=== PATIENT | female | born 1955 | race Caucasian/White ===

== ENCOUNTER → 2018-12-10 08:00 | Outpatient (CLI) | payer MEDICARE | END | disposition home or self-care (01) | LOC: D.MAMMO 08:00 | DX: Z12.31 Encounter for screening mammogram for malignant neoplasm of breast (principal) ==

== ENCOUNTER → 2020-05-17 14:14 | Outpatient (CLI) | payer MEDICARE ==
[2020-05-17 17:44] LABS: BASOPHILS 0.3 % (0-2); EOSINOPHILS 1.4 % (0-7); HEMATOCRIT 42.2 % (36.0-48.0); HEMOGLOBIN 12.9 g/dL (12-16); IMMATURE GRANULOCYTES 0.3 % (0-5); LYMPHOCYTES 22.2 % (15-50); MCH 25.6 pg (26.0-34.0); MCHC 30.6 g/dL (31.0-37.0); MCV 83.7 fL (80.0-100.0); MEAN PLATELET VOLUME 10.7 fL (7.4-10.4); MONOCYTES 7.6 % (2-11); NEUTROPHILS 68.2 % (40-80); PLATELET COUNT 354 10x3/uL (130-400); RBC 5.04 10x6/uL (4.00-5.40); WBC 7.9 10x3/uL (4.8-10.8)
[2020-05-17 17:54] LABS: BILIRUBIN NEGATIVE (NEGATIVE); GLUCOSE NEGATIVE (NEGATIVE); KETONE NEGATIVE (NEGATIVE); NITRITE NEGATIVE (NEGATIVE); SPECIFIC GRAVITY 1.015 (1.005-1.020); UROBILINOGEN NORMAL (NORMAL); WHITE CELLS - URINE >50 /hpf (NEGATIVE)
[2020-05-17 17:55] LABS: BACTERIA MODERATE /hpf (NEGATIVE); CALCIUM OXALATE CRYSTALS 0-5 /hpf (NONE SEEN)
[2020-05-17 18:01] LABS: ALBUMIN 3.3 g/dL (3.4-5.0); ALKALINE PHOSPHATASE 144 U/L (30-120); ALT (SGPT) 26 U/L (10-68); BILIRUBIN - TOTAL 0.36 mg/dL (0.2-1.3); CALC OSMOLALITY 272 mosm/kg (275-300); CALCIUM 9.8 mg/dL (8.5-10.1); CARBON DIOXIDE 31.1 mmol/L (21.0-32.0); CHLORIDE - SERUM 101 mmol/L (98-107); CREATININE - SERUM 0.8 mg/dL (0.6-1.3); GLUCOSE 88 mg/dL (74-106); POTASSIUM - SERUM 3.4 mmol/L (3.5-5.1); PROTEIN - SERUM 7.2 g/dL (6.4-8.2); SODIUM 137 mmol/L (136-145); UREA NITROGEN 13 mg/dL (7-18); eGFR NON AFRICAN AMERICAN 76 mL/min (90-120)
== END | disposition home or self-care (01) ==
LOC: D.LABREF 14:14
PROVIDERS: ATTEND Nurse Practitioner Gerontology
DX: N39.0 Urinary tract infection, site not specified (principal); R53.83 Other fatigue; R63.0 Anorexia

== ENCOUNTER → 2020-07-09 20:23 | Outpatient (CLI) | payer MEDICARE ==
[2020-07-09 21:24] LABS: BASOPHILS 0.1 % (0-2); EOSINOPHILS 3.6 % (0-7); HEMOGLOBIN 9.9 g/dL (12-16); IMMATURE GRANULOCYTES 0.2 % (0-5); LYMPHOCYTES 25.4 % (15-50); MCH 25.4 pg (26.0-34.0); MCV 84.8 fL (80.0-100.0); MEAN PLATELET VOLUME 9.8 fL (7.4-10.4); MONOCYTES 13.6 % (2-11); NEUTROPHILS 57.1 % (40-80); RBC 3.89 10x6/uL (4.00-5.40); RDW 20.1 % (11.5-14.5)
[2020-07-09 21:47] LABS: ALBUMIN 2.6 g/dL (3.4-5.0); ALT (SGPT) 15 U/L (10-68); C-REACTIVE PROTEIN 1.9 mg/dL (0.0-0.9); CALC OSMOLALITY 277 mosm/kg (275-300); CALCIUM 9.2 mg/dL (8.5-10.1); CARBON DIOXIDE 25.7 mmol/L (21.0-32.0); CHLORIDE - SERUM 105 mmol/L (98-107); CREATINE KINASE 25 UL (21-215); CREATININE - SERUM 0.7 mg/dL (0.6-1.3); POTASSIUM - SERUM 3.9 mmol/L (3.5-5.1); SODIUM 141 mmol/L (136-145); UREA NITROGEN 13 mg/dL (7-18); VANCOMYCIN - TROUGH 11.4 ug/mL (10.0-20.0); eGFR NON AFRICAN AMERICAN 89 mL/min (90-120)
[2020-07-09 21:49] LABS: GLUCOSE 41 mg/dL (74-106)
[2020-07-09 22:12] LABS: PLATELET COUNT 470 10x3/uL (130-400)
[2020-07-09 22:48] LABS: ERYTHROCYTE SEDIMENTATION RATE 17 mm/hr (0-30)
== END | disposition home or self-care (01) ==
LOC: D.LABREF 20:23
PROVIDERS: ATTEND Nurse Practitioner Gerontology
DX: A41.9 Sepsis, unspecified organism (principal)

== ENCOUNTER → 2020-07-12 17:59 | Outpatient (CLI) | payer MEDICARE | END | disposition home or self-care (01) | LOC: D.LABREF 17:59 | DX: A49.02 Methicillin resistant Staphylococcus aureus infection, unspecified site (principal); A41.9 Sepsis, unspecified organism; N39.0 Urinary tract infection, site not specified; Z79.2 Long term (current) use of antibiotics ==

== ENCOUNTER → 2020-07-16 15:17 | Outpatient (CLI) | payer MEDICARE ==
[2020-07-16 17:08] LABS: BASOPHILS 0.3 % (0-2); EOSINOPHILS 2.8 % (0-7); HEMATOCRIT 34.3 % (36.0-48.0); HEMOGLOBIN 10.7 g/dL (12-16); IMMATURE GRANULOCYTES 0.3 % (0-5); LYMPHOCYTES 19.1 % (15-50); MCH 25.5 pg (26.0-34.0); MCHC 31.2 g/dL (31.0-37.0); MCV 81.7 fL (80.0-100.0); MEAN PLATELET VOLUME 10.8 fL (7.4-10.4); MONOCYTES 10.1 % (2-11); NEUTROPHILS 67.4 % (40-80); RDW 17.8 % (11.5-14.5); WBC 9.8 10x3/uL (4.8-10.8)
[2020-07-16 17:42] LABS: ALBUMIN 2.9 g/dL (3.4-5.0); BILIRUBIN - DIRECT 0.05 mg/dL (0.00-0.30); BILIRUBIN - INDIRECT 0.09 mg/dL (0.00-1.00); BILIRUBIN - TOTAL 0.14 mg/dL (0.2-1.3); CREATININE - SERUM 0.7 mg/dL (0.6-1.3); PROTEIN - SERUM 7.3 g/dL (6.4-8.2); VANCOMYCIN - TROUGH 11.5 ug/mL (10.0-20.0)
[2020-07-16 17:44] LABS: PLATELET COUNT 167 10x3/uL (130-400)
== END | disposition home or self-care (01) ==
LOC: D.LABREF 15:17
DX: A41.9 Sepsis, unspecified organism (principal); Z79.2 Long term (current) use of antibiotics

== ENCOUNTER → 2020-07-22 15:03 | Outpatient (CLI) | payer MEDICARE ==
[2020-07-22 16:00] LABS: BASOPHILS 0.2 % (0-2); EOSINOPHILS 3.9 % (0-7); HEMATOCRIT 33.4 % (36.0-48.0); HEMOGLOBIN 10.2 g/dL (12-16); IMMATURE GRANULOCYTES 0.3 % (0-5); LYMPHOCYTES 15.8 % (15-50); MCH 25.1 pg (26.0-34.0); MCHC 30.5 g/dL (31.0-37.0); MCV 82.1 fL (80.0-100.0); MEAN PLATELET VOLUME 10.3 fL (7.4-10.4); MONOCYTES 11.8 % (2-11); RBC 4.07 10x6/uL (4.00-5.40); RDW 16.9 % (11.5-14.5); WBC 10.3 10x3/uL (4.8-10.8)
[2020-07-22 16:02] LABS: PLATELET COUNT 367 10x3/uL (130-400)
[2020-07-22 16:51] LABS: C-REACTIVE PROTEIN 3.8 mg/dL (0.0-0.9); CREATININE - SERUM 0.6 mg/dL (0.6-1.3); VANCOMYCIN - TROUGH 12.8 ug/mL (10.0-20.0)
[2020-07-22 16:59] LABS: ERYTHROCYTE SEDIMENTATION RATE 35 mm/hr (0-30)
== END | disposition home or self-care (01) ==
LOC: D.LABREF 15:03
DX: A41.02 Sepsis due to Methicillin resistant Staphylococcus aureus (principal); N39.0 Urinary tract infection, site not specified; B95.2 Enterococcus as the cause of diseases classified elsewhere

== ENCOUNTER → 2020-07-25 19:22 | Outpatient (CLI) | payer MEDICARE | END | disposition home or self-care (01) | LOC: D.LABREF 19:22 | DX: Z79.2 Long term (current) use of antibiotics (principal); A41.9 Sepsis, unspecified organism ==

== ENCOUNTER → 2020-07-30 15:30 | Outpatient (CLI) | payer MEDICARE ==
[2020-07-30 16:54] LABS: BASOPHILS 0.2 % (0-2); EOSINOPHILS 3.4 % (0-7); HEMATOCRIT 29.7 % (36.0-48.0); HEMOGLOBIN 8.9 g/dL (12-16); IMMATURE GRANULOCYTES 0.4 % (0-5); LYMPHOCYTES 17.8 % (15-50); MCH 24.5 pg (26.0-34.0); MCV 81.8 fL (80.0-100.0); MEAN PLATELET VOLUME 9.9 fL (7.4-10.4); MONOCYTES 9.5 % (2-11); NEUTROPHILS 68.7 % (40-80); PLATELET COUNT 422 10x3/uL (130-400); RBC 3.63 10x6/uL (4.00-5.40); RDW 16.4 % (11.5-14.5); WBC 10.6 10x3/uL (4.8-10.8)
[2020-07-30 17:44] LABS: ALBUMIN 2.6 g/dL (3.4-5.0); ALKALINE PHOSPHATASE 170 U/L (30-120); ALT (SGPT) 19 U/L (10-68); CALC OSMOLALITY 276 mosm/kg (275-300); CALCIUM 8.7 mg/dL (8.5-10.1); CARBON DIOXIDE 25.2 mmol/L (21.0-32.0); CHLORIDE - SERUM 107 mmol/L (98-107); CREATININE - SERUM 0.6 mg/dL (0.6-1.3); POTASSIUM - SERUM 3.8 mmol/L (3.5-5.1); PROTEIN - SERUM 6.6 g/dL (6.4-8.2); SODIUM 139 mmol/L (136-145); UREA NITROGEN 15 mg/dL (7-18); VANCOMYCIN - TROUGH 29.9 ug/mL (10.0-20.0); eGFR NON AFRICAN AMERICAN > 90 mL/min (90-120)
[2020-07-30 17:53] LABS: GLUCOSE 68 mg/dL (74-106)
== END | disposition home or self-care (01) ==
LOC: D.LABREF 15:30
PROVIDERS: ATTEND Family Medicine
DX: A41.9 Sepsis, unspecified organism (principal); Z79.2 Long term (current) use of antibiotics

== ENCOUNTER → 2020-08-06 18:26 | Outpatient (CLI) | payer MEDICARE ==
[2020-08-06 18:42] LABS: BASOPHILS 0.1 % (0-2); EOSINOPHILS 2.6 % (0-7); HEMATOCRIT 33.5 % (36.0-48.0); HEMOGLOBIN 10.2 g/dL (12-16); IMMATURE GRANULOCYTES 0.2 % (0-5); LYMPHOCYTES 19.1 % (15-50); MCH 24.9 pg (26.0-34.0); MCHC 30.4 g/dL (31.0-37.0); MCV 81.9 fL (80.0-100.0); MEAN PLATELET VOLUME 10.1 fL (7.4-10.4); MONOCYTES 9.4 % (2-11); NEUTROPHILS 68.6 % (40-80); PLATELET COUNT 455 10x3/uL (130-400); RBC 4.09 10x6/uL (4.00-5.40); RDW 16.6 % (11.5-14.5); WBC 9.3 10x3/uL (4.8-10.8)
[2020-08-06 18:58] LABS: CREATININE - SERUM 0.7 mg/dL (0.6-1.3); VANCOMYCIN - TROUGH 20.3 ug/mL (10.0-20.0)
== END | disposition home or self-care (01) ==
LOC: D.LAB 18:26
PROVIDERS: ATTEND Internal Medicine Infectious Disease
DX: A41.9 Sepsis, unspecified organism (principal); Z79.01 Long term (current) use of anticoagulants

== ENCOUNTER → 2021-01-15 17:11 | Outpatient (CLI) | payer MEDICARE | END | disposition home or self-care (01) | LOC: D.LABREF 17:11 | PROVIDERS: ATTEND Family Medicine | DX: L89.159 Pressure ulcer of sacral region, unspecified stage (principal) ==

== ENCOUNTER → 2021-05-16 19:42 | Outpatient (CLI) | payer MEDICARE ==
[2021-05-16 20:03] LABS: BILIRUBIN NEGATIVE (NEGATIVE); KETONE NEGATIVE mg/dL (< 1+); NITRITE POSITIVE (NEGATIVE); UROBILINOGEN NORMAL mg/dL (< 2)
[2021-05-16 20:08] LABS: AMORPHOUS SEDIMENT MANY LPF (<FEW); BACTERIA FEW HPF (<MOD)
[2021-05-16 20:10] LABS: WHITE CELLS - URINE 20 HPF (0-4)
== END | disposition home or self-care (01) ==
LOC: D.LABREF 19:42
PROVIDERS: ATTEND Family Medicine
DX: N39.0 Urinary tract infection, site not specified (principal)